=== PATIENT | female | born 1975 | race African-American/Black ===

== ENCOUNTER 2019-12-26 20:13 | Emergency (ER) | payer MEDICAID, SELFPAY ==
[~2019-12-26] VITALS: Ht 167.6 cm; Wt 79.4 kg
--- NOTE | 2019-12-26 20:27 | NUR ---
Patient presents to ER c/o jaw pain post jaw surgery. Patient was wired shut for approx 6 weeks. Patient states pain started approx 3 weeks ago.
[2019-12-26] MEDS ORDERED: SODIUM CHLORIDE FLUSH 10ML SYR IVF ONE (21:00)
[2019-12-26 21:21] LABS: INTERNATIONAL NORMALIZED RATIO 0.94 (0.93-1.1)
[2019-12-26 21:22] LABS: MEAN CORPUSCULAR HEMOGLOBIN 22.8 pg (27.0-34.8); MEAN CORPUSCULAR VOLUME 73.6 fL (80-100); MEAN PLATELET VOLUME 7.3 fL (7.4-10.4); PLATELET COUNT 524 x10^3/uL (130-400); RED BLOOD COUNT 4.55 x10^6/uL (3.82-5.3); RED CELL DISTRIBUTION WIDTH 23.5 % (9.6-15.2)
[2019-12-26 21:23] LABS: ALBUMIN 3.6 g/dL (3.4-5.0); ANION GAP 7 mmol/L (5-15); CALCIUM 8.9 mg/dL (8.5-10.1); CHLORIDE 107 mmol/L (98-107); CREATININE 0.79 mg/dL (0.55-1.02)
[2019-12-26] MEDS ORDERED: OMNIPAQUE 350 MG/ML, 75ML BOTTLE ONE (21:40)
[2019-12-26 21:45] LABS: MD YES
[2019-12-26 21:49] LABS: BAND#(MANUAL) 0.06 x10^3/uL; BANDS%(MANUAL) 1 % (0-7); BASOS#(MANUAL) 0.06 x10^3/uL (0-0.1); BASOS% (MANUAL) 1 % (0-1); EOS#(MANUAL) 0.06 x10^3/uL (0.0-0.4); EOS% (MANUAL) 1 % (1-7); LYMPH#(MANUAL) 2.83 x10^3/uL (1-3.4); LYMPHS% (MANUAL) 48 % (22-44); MONOS#(MANUAL) 0.59 x10^3/uL (0.3-2.7); MONOS% (MANUAL) 10 % (2-9); SEGS% (MANUAL) 39 % (42-75)
[2019-12-26 21:50] LABS: ANISOCYTOSIS 1+; HYPOCHROMIA 1+; OVALOCYTES 1+; POLYCHROMASIA 1+
[2019-12-26 21:51] LABS: <PLATELET ESTIMATE> INCREASED; STOMATOCYTES 1+; TARGET CELLS 1+
[2019-12-26 21:52] LABS: SMALL PLATELETS 1+
[2019-12-26 21:53] VITALS: BP 142/98
--- NOTE | 2019-12-26 21:53 | NUR ---
Patient states she has a 9 month old at home who can no longer be watched and she needed to leave. CT performed. ERP spoke with patient about returning. Patient advised of the risks to refusing further care and signed out AMA.
== END 2019-12-26 21:55 | disposition left against medical advice (07) ==
LOC: ED 21:12
DX: R68.84 Jaw pain (principal); I10 Essential (primary) hypertension; F17.210 Nicotine dependence, cigarettes, uncomplicated
CPT/HCPCS: 36415; 70487; 80048; 82040; 85025; 85610; 99285; Q9967